=== PATIENT | male | born 1960 | race Caucasian/White ===

== ENCOUNTER 2018-03-11 09:37 | Emergency (ER) | payer SELFPAY | END 2018-03-11 10:40 | disposition home or self-care (01) | LOC: E/R 09:37 | DX: K42.9 Umbilical hernia without obstruction or gangrene (principal); R40.2142 Coma scale, eyes open, spontaneous, at arrival to emergency department; R40.2252 Coma scale, best verbal response, oriented, at arrival to emergency department; R40.2362 Coma scale, best motor response, obeys commands, at arrival to emergency department; F17.210 Nicotine dependence, cigarettes, uncomplicated | CPT/HCPCS: 99282 ==

== ENCOUNTER 2018-03-23 10:16 | Emergency (ER) | payer MEDICAID | END 2018-03-23 11:40 | disposition home or self-care (01) | LOC: E/R 10:16 | DX: K43.9 Ventral hernia without obstruction or gangrene (principal); Z87.891 Personal history of nicotine dependence | CPT/HCPCS: 99282; Z7502 ==

== ENCOUNTER 2018-03-29 14:32 | Inpatient (IN) | payer MEDICAID ==
[2018-03-29] MEDS: PIPER-TAZO 3.375 GM IV (PMX) 100 ML IVPB (00:01)
[2018-03-29 14:54] LABS: ADD MAN DIFF? NO
[2018-03-29 14:59] LABS: WHITE BLOOD COUNT 12.3 10^3/ul (4.8-10.8)
[2018-03-29 14:59] LABS: BASOPHILS % 0.3 % (0.0-2.0); EOSINOPHILS # 0.1 10^3/ul (0.0-0.5); HEMATOCRIT 48.8 % (42.0-52.0); HEMOGLOBIN 16.6 g/dl (14.0-18.0); LYMPHOCYTES # 0.9 10^3/ul (0.8-2.9); LYMPHOCYTES % 7.3 % (15.0-51.0); MEAN CORPUSCULAR HEMOGLOBIN 29.6 pg (29.0-33.0); MEAN CORPUSCULAR VOLUME 87.1 fl (82.0-101.0); MEAN PLATELET VOLUME 10.4 fl (7.4-10.4); MONOCYTE # 0.9 10^3/ul (0.3-0.9); MONOCYTES % 7.2 % (0.0-11.0); NEUTROPHIL # 10.3 10^3/ul (1.6-7.5); NEUTROPHILS % 83.7 % (39.0-77.0); PLATELET COUNT 311 10^3/UL (140-415); RED CELL DISTRIBUTION WIDTH 13.2 % (11.5-14.5)
[2018-03-29] MEDS: ONDANSETRON 4 MG INJ IV ×2 (15:02→20:09)
[2018-03-29] MEDS: morphine 2 MG INJ IV ×2 (15:04→20:09)
[2018-03-29 15:11] LABS: PROTIME 12.2 Sec (11.9-14.9)
[2018-03-29 15:13] LABS: PARTIAL THROMBOPLASTIN TIME 28.1 Sec (23.0-35.0)
[2018-03-29 15:14] LABS: ALANINE AMINOTRANSFERASE 14 IU/L (13-69); ALKALINE PHOSPHATASE 65 IU/L (42-121); ANION GAP 18 (8-16); ASPARTATE AMINO TRANSFERASE 23 IU/L (15-46); BILIRUBIN,INDIRECT 1.9 mg/dl (0-1.1); BILIRUBIN,TOTAL 1.9 mg/dl (0.2-1.3); BLOOD UREA NITROGEN 18 mg/dl (7-20); CALCIUM 10.1 mg/dl (8.4-10.2); CARBON DIOXIDE 29 mmol/L (21-31); CHLORIDE 99 mmol/L (97-110); CREATININE 1.22 mg/dl (0.61-1.24); GLUCOSE 145 mg/dl (70-220); LIPASE 46 U/L (23-300); POTASSIUM 4.3 mmol/L (3.5-5.1); SODIUM 142 mmol/L (135-144); TOTAL PROTEIN 8.4 g/dl (6.1-8.1)
[2018-03-29] MEDS ORDERED: NACL 0.9% 3 ML SYG IV (19:00)
[2018-03-29] MEDS: D5W-0.45 NACL + KCL 20 MEQ 1,000 ML IV (21:44)
[2018-03-29] MEDS: PANTOPRAZOLE IV 80 MG in SOD CHLORIDE 0.9% 100 ML IVPB (22:38)
[2018-03-29] MEDS: PANTOPRAZOLE IV 80 MG in SOD CHLORIDE 0.9% 100 ML IV (22:58)
[2018-03-30] MEDS: PIPER-TAZO 3.375 GM IV (PMX) 100 ML IVPB ×5 (00:01→23:52)
[2018-03-30] MEDS: D5W-0.45 NACL + KCL 20 MEQ 1,000 ML IV ×4 (05:23→21:30)
[2018-03-30] MEDS: PANTOPRAZOLE IV 80 MG in SOD CHLORIDE 0.9% 100 ML IV ×2 (06:55→15:44)
[2018-03-30 08:29] LABS: ADD MAN DIFF? NO
[2018-03-30 08:31] LABS: BASOPHILS % 0.2 % (0.0-2.0); EOSINOPHILS # 0.2 10^3/ul (0.0-0.5); EOSINOPHILS % 1.4 % (0.0-7.0); HEMATOCRIT 42.8 % (42.0-52.0); HEMOGLOBIN 14.5 g/dl (14.0-18.0); LYMPHOCYTES # 0.8 10^3/ul (0.8-2.9); LYMPHOCYTES % 6.5 % (15.0-51.0); MEAN CORPUSCULAR HEMOGLOBIN 29.8 pg (29.0-33.0); MEAN CORPUSCULAR HGB CONC 33.9 g/dl (32.0-37.0); MEAN CORPUSCULAR VOLUME 88.1 fl (82.0-101.0); MEAN PLATELET VOLUME 10.6 fl (7.4-10.4); MONOCYTE # 1.1 10^3/ul (0.3-0.9); MONOCYTES % 9.2 % (0.0-11.0); NEUTROPHIL # 9.7 10^3/ul (1.6-7.5); NEUTROPHILS % 82.1 % (39.0-77.0); PLATELET COUNT 239 10^3/UL (140-415); RED BLOOD COUNT 4.86 10^6/ul (4.70-6.10); RED CELL DISTRIBUTION WIDTH 13.2 % (11.5-14.5)
[2018-03-30 08:31] LABS: WHITE BLOOD COUNT 11.8 10^3/ul (4.8-10.8)
[2018-03-30 08:56] LABS: ALANINE AMINOTRANSFERASE 17 IU/L (13-69); ALBUMIN 3.3 g/dl (3.3-4.9); ALKALINE PHOSPHATASE 42 IU/L (42-121); ANION GAP 14 (8-16); ASPARTATE AMINO TRANSFERASE 19 IU/L (15-46); BILIRUBIN,INDIRECT 2.3 mg/dl (0-1.1); BILIRUBIN,TOTAL 2.3 mg/dl (0.2-1.3); BLOOD UREA NITROGEN 23 mg/dl (7-20); CALCIUM 8.8 mg/dl (8.4-10.2); CARBON DIOXIDE 29 mmol/L (21-31); CHLORIDE 100 mmol/L (97-110); CREATININE 1.49 mg/dl (0.61-1.24); GLUCOSE 147 mg/dl (70-220); POTASSIUM 4.2 mmol/L (3.5-5.1); SODIUM 139 mmol/L (135-144); TOTAL PROTEIN 6.3 g/dl (6.1-8.1)
[2018-03-30] MEDS: morphine 2 MG INJ IV ×2 (10:37→21:35)
[2018-03-30] MEDS ORDERED: PIPER-TAZO 3.375 GM IV (PMX) 100 ML IVPB (12:00)
[2018-03-30] MEDS ORDERED: CHLORPROMAZINE 25 MG INJ IV (13:00)
[2018-03-30] MEDS: CHLORPROMAZINE 25 MG INJ IM (13:48)
[2018-03-30] MEDS: CHLORPROMAZINE 25 MG INJ IV (16:30)
[2018-03-30 18:38] LABS: HEMATOCRIT 36.9 % (42.0-52.0); HEMOGLOBIN 12.5 g/dl (14.0-18.0)
[2018-03-31] MEDS: PANTOPRAZOLE IV 80 MG in SOD CHLORIDE 0.9% 100 ML IV ×3 (01:01→20:05)
[2018-03-31] MEDS: PIPER-TAZO 3.375 GM IV (PMX) 100 ML IVPB ×4 (05:23→23:58)
[2018-03-31 06:10] LABS: ADD MAN DIFF? NO
[2018-03-31] MEDS: D5W-0.45 NACL + KCL 20 MEQ 1,000 ML IV ×2 (06:13→19:44)
[2018-03-31 06:21] LABS: BASOPHILS % 0.3 % (0.0-2.0); EOSINOPHILS # 0.1 10^3/ul (0.0-0.5); EOSINOPHILS % 0.9 % (0.0-7.0); HEMATOCRIT 33.5 % (42.0-52.0); HEMOGLOBIN 11.3 g/dl (14.0-18.0); LYMPHOCYTES # 0.7 10^3/ul (0.8-2.9); LYMPHOCYTES % 8.7 % (15.0-51.0); MEAN CORPUSCULAR HGB CONC 33.7 g/dl (32.0-37.0); MEAN CORPUSCULAR VOLUME 88.9 fl (82.0-101.0); MEAN PLATELET VOLUME 10.7 fl (7.4-10.4); MONOCYTE # 0.9 10^3/ul (0.3-0.9); MONOCYTES % 11.4 % (0.0-11.0); NEUTROPHIL # 5.8 10^3/ul (1.6-7.5); NEUTROPHILS % 78.2 % (39.0-77.0); PLATELET COUNT 170 10^3/UL (140-415); RED BLOOD COUNT 3.77 10^6/ul (4.70-6.10)
[2018-03-31 06:21] LABS: WHITE BLOOD COUNT 7.4 10^3/ul (4.8-10.8)
[2018-03-31 06:48] LABS: ANION GAP 11 (8-16); BLOOD UREA NITROGEN 16 mg/dl (7-20); CALCIUM 7.8 mg/dl (8.4-10.2); CARBON DIOXIDE 27 mmol/L (21-31); CHLORIDE 102 mmol/L (97-110); CREATININE 1.55 mg/dl (0.61-1.24); GLUCOSE 132 mg/dl (70-220); MAGNESIUM 1.9 mg/dl (1.7-2.5); SODIUM 136 mmol/L (135-144)
[2018-03-31] MEDS: morphine 2 MG INJ IV ×4 (07:29→23:57)
[2018-03-31] MEDS ORDERED: BUPIVACAINE 0.25% (MPF) 30 ML INJ (15:39)
[2018-03-31] MEDS ORDERED: MIDAZOLAM 1 MG/ML 2 ML INJ ×2 (15:44→17:37)
[2018-03-31] MEDS ORDERED: PROPOFOL 20 ML (15:48)
[2018-03-31] MEDS: BUPIVACAINE 0.25%/EPI (SDV) 30 ML INJ (16:21)
[2018-03-31] MEDS: LIDOCAINE 1% (MDV) 20 ML INJ (16:22)
[2018-03-31] MEDS ORDERED: hydrALAzine 20 MG INJ (16:39)
[2018-03-31] MEDS ORDERED: VANCOMYCIN 1 GM INJ (16:58)
[2018-03-31] MEDS ORDERED: ONDANSETRON 4 MG INJ (17:04)
[2018-03-31] MEDS ORDERED: ROCURONIUM 50 MG INJ ×2 (17:05→17:16)
[2018-03-31] MEDS ORDERED: LIDOCAINE 2% (SDV) 5 ML INJ (17:05)
[2018-03-31] MEDS ORDERED: NEOSTIGMINE 3 MG/3 ML SYRINGE (17:05)
[2018-03-31] MEDS ORDERED: GLYCOPYRROLATE 0.4 MG INJ (17:05)
[2018-03-31] MEDS ORDERED: FENTAnyl 50 MCG/ML VIAL (17:20)
[2018-03-31] MEDS ORDERED: PROVENTIL HFA 6.7GM INHALER (17:28)
[2018-03-31 18:29] LABS: ADD UMIC NO; UR ASCORBIC ACID NEGATIVE (NEGATIVE); UR BILIRUBIN (Dip) NEGATIVE (NEGATIVE); UR BLOOD (Dip) NEGATIVE (NEGATIVE); UR CLARITY CLEAR (CLEAR); UR COLOR YELLOW (YELLOW); UR GLUCOSE (Dip) 1+ mg/dL (NEGATIVE); UR KETONES (Dip) NEGATIVE (NEGATIVE); UR LEUKOCYTE ESTERASE (Dip) NEGATIVE Leu/ul (NEGATIVE); UR NITRITE (Dip) NEGATIVE (NEGATIVE); UR SPECIFIC GRAVITY (Dip) 1.012 (1.003-1.030); UR TOTAL PROTEIN (Dip) NEGATIVE (NEGATIVE); UR UROBILINOGEN (Dip) NEGATIVE (NEGATIVE)
[2018-03-31] MEDS ORDERED: ALBUTEROL 0.083% (NEB) 2.5 MG/3 ML AMP HHN (18:30)
[2018-03-31] MEDS ORDERED: DIPHENHYDRAMINE 50 MG INJ IV (18:30)
[2018-03-31] MEDS ORDERED: FENTAnyl 50 MCG/ML VIAL IV (18:30)
[2018-03-31] MEDS ORDERED: LABETALOL HCL 20MG INJ IV (18:30)
[2018-03-31] MEDS ORDERED: MEPERIDINE 25 MG INJ IV (18:30)
[2018-03-31] MEDS ORDERED: ONDANSETRON 4 MG INJ IV (18:30)
[2018-03-31] MEDS ORDERED: hydrALAzine 20 MG INJ IV (18:30)
[2018-03-31] MEDS ORDERED: HYDROmorphONE 1 MG/5 ML IV SYRINGE IV (18:30)
[2018-03-31] MEDS: HYDROmorphONE 1 MG/5 ML IV SYRINGE IV (18:58)
[2018-03-31] MEDS: FAMOTIDINE 20 MG INJ IV (20:05)
[2018-03-31] MEDS: HYDROmorphONE 0.5 MG/0.5 ML SYG IV (22:03)
[2018-04-01] MEDS: HYDROmorphONE 2 MG/ML SYG IV (01:30)
[2018-04-01] MEDS: D5W-0.45 NACL + KCL 20 MEQ 1,000 ML IV ×3 (03:20→22:28)
[2018-04-01] MEDS: PANTOPRAZOLE IV 80 MG in SOD CHLORIDE 0.9% 100 ML IV ×2 (04:07→18:50)
[2018-04-01] MEDS: PIPER-TAZO 3.375 GM IV (PMX) 100 ML IVPB ×4 (05:49→22:39)
[2018-04-01 06:12] LABS: ADD MAN DIFF? NO
[2018-04-01 06:21] LABS: WHITE BLOOD COUNT 6.5 10^3/ul (4.8-10.8)
[2018-04-01 06:21] LABS: BASOPHILS % 0.3 % (0.0-2.0); EOSINOPHILS # 0.1 10^3/ul (0.0-0.5); EOSINOPHILS % 1.1 % (0.0-7.0); HEMATOCRIT 29.4 % (42.0-52.0); HEMOGLOBIN 9.8 g/dl (14.0-18.0); LYMPHOCYTES # 0.8 10^3/ul (0.8-2.9); LYMPHOCYTES % 12.9 % (15.0-51.0); MEAN CORPUSCULAR HEMOGLOBIN 30.2 pg (29.0-33.0); MEAN CORPUSCULAR HGB CONC 33.3 g/dl (32.0-37.0); MEAN CORPUSCULAR VOLUME 90.5 fl (82.0-101.0); MEAN PLATELET VOLUME 10.6 fl (7.4-10.4); NEUTROPHIL # 4.5 10^3/ul (1.6-7.5); NEUTROPHILS % 69.2 % (39.0-77.0); PLATELET COUNT 159 10^3/UL (140-415); RED BLOOD COUNT 3.25 10^6/ul (4.70-6.10); RED CELL DISTRIBUTION WIDTH 13.1 % (11.5-14.5)
[2018-04-01] MEDS: HYDROmorphONE 1 MG/ML SYG IV ×5 (06:21→22:27)
[2018-04-01 06:50] LABS: ANION GAP 7 (8-16); BLOOD UREA NITROGEN 10 mg/dl (7-20); CALCIUM 7.1 mg/dl (8.4-10.2); CARBON DIOXIDE 28 mmol/L (21-31); CHLORIDE 107 mmol/L (97-110); CREATININE 1.31 mg/dl (0.61-1.24); GLUCOSE 104 mg/dl (70-220); POTASSIUM 3.8 mmol/L (3.5-5.1); SODIUM 138 mmol/L (135-144)
[2018-04-01] MEDS: FAMOTIDINE 20 MG INJ IV ×2 (09:56→20:32)
[2018-04-02] MEDS: HYDROmorphONE 1 MG/ML SYG IV ×6 (01:48→21:07)
[2018-04-02] MEDS: PANTOPRAZOLE IV 80 MG in SOD CHLORIDE 0.9% 100 ML IV ×2 (03:04→13:52)
[2018-04-02] MEDS: PIPER-TAZO 3.375 GM IV (PMX) 100 ML IVPB ×4 (05:28→23:54)
[2018-04-02 07:34] LABS: ADD MAN DIFF? NO
[2018-04-02 07:44] LABS: WHITE BLOOD COUNT 6.9 10^3/ul (4.8-10.8)
[2018-04-02 07:44] LABS: BASOPHILS % 0.3 % (0.0-2.0); EOSINOPHILS # 0.2 10^3/ul (0.0-0.5); EOSINOPHILS % 3.1 % (0.0-7.0); HEMATOCRIT 29.3 % (42.0-52.0); HEMOGLOBIN 9.8 g/dl (14.0-18.0); LYMPHOCYTES # 0.8 10^3/ul (0.8-2.9); LYMPHOCYTES % 11.5 % (15.0-51.0); MEAN CORPUSCULAR HEMOGLOBIN 30.2 pg (29.0-33.0); MEAN CORPUSCULAR HGB CONC 33.4 g/dl (32.0-37.0); MEAN CORPUSCULAR VOLUME 90.2 fl (82.0-101.0); MEAN PLATELET VOLUME 10.2 fl (7.4-10.4); MONOCYTE # 0.8 10^3/ul (0.3-0.9); MONOCYTES % 11.8 % (0.0-11.0); NEUTROPHILS % 72.6 % (39.0-77.0); PLATELET COUNT 180 10^3/UL (140-415); RED BLOOD COUNT 3.25 10^6/ul (4.70-6.10); RED CELL DISTRIBUTION WIDTH 12.9 % (11.5-14.5)
[2018-04-02 08:20] LABS: ANION GAP 9 (8-16); BLOOD UREA NITROGEN 8 mg/dl (7-20); CALCIUM 7.7 mg/dl (8.4-10.2); CARBON DIOXIDE 28 mmol/L (21-31); CHLORIDE 103 mmol/L (97-110); CREATININE 1.18 mg/dl (0.61-1.24); GLUCOSE 106 mg/dl (70-220); PHOSPHORUS 2.6 mg/dl (2.5-4.9); POTASSIUM 3.6 mmol/L (3.5-5.1); SODIUM 136 mmol/L (135-144)
[2018-04-02] MEDS: FAMOTIDINE 20 MG INJ IV (08:40)
[2018-04-02] MEDS: D5W-0.45 NACL + KCL 20 MEQ 1,000 ML IV ×2 (08:50→19:43)
[2018-04-02] MEDS: morphine 4 MG/ML VIAL IV ×2 (13:17→18:20)
[2018-04-02] MEDS: PANTOPRAZOLE 40 MG INJ IV (18:17)
[2018-04-03] MEDS: morphine 4 MG/ML VIAL IV ×3 (00:01→18:06)
[2018-04-03] MEDS: HYDROmorphONE 1 MG/ML SYG IV ×6 (04:00→23:48)
[2018-04-03] MEDS: D5W-0.45 NACL + KCL 20 MEQ 1,000 ML IV ×3 (05:20→20:26)
[2018-04-03] MEDS: PIPER-TAZO 3.375 GM IV (PMX) 100 ML IVPB (05:36)
[2018-04-03] MEDS: PANTOPRAZOLE 40 MG INJ IV ×2 (05:37→18:05)
[2018-04-03 07:05] LABS: ADD MAN DIFF? NO
[2018-04-03 07:13] LABS: BASOPHILS % 0.6 % (0.0-2.0); EOSINOPHILS # 0.3 10^3/ul (0.0-0.5); EOSINOPHILS % 5.5 % (0.0-7.0); HEMATOCRIT 30.7 % (42.0-52.0); HEMOGLOBIN 10.4 g/dl (14.0-18.0); LYMPHOCYTES # 0.9 10^3/ul (0.8-2.9); LYMPHOCYTES % 17.9 % (15.0-51.0); MEAN CORPUSCULAR HGB CONC 33.9 g/dl (32.0-37.0); MEAN CORPUSCULAR VOLUME 88.5 fl (82.0-101.0); MEAN PLATELET VOLUME 10.2 fl (7.4-10.4); MONOCYTE # 0.6 10^3/ul (0.3-0.9); MONOCYTES % 11.2 % (0.0-11.0); NEUTROPHIL # 3.4 10^3/ul (1.6-7.5); NEUTROPHILS % 64.4 % (39.0-77.0); PLATELET COUNT 230 10^3/UL (140-415); RED BLOOD COUNT 3.47 10^6/ul (4.70-6.10); RED CELL DISTRIBUTION WIDTH 12.8 % (11.5-14.5)
[2018-04-03 07:13] LABS: WHITE BLOOD COUNT 5.3 10^3/ul (4.8-10.8)
[2018-04-03 07:43] LABS: ANION GAP 9 (8-16); BLOOD UREA NITROGEN 6 mg/dl (7-20); CALCIUM 8.5 mg/dl (8.4-10.2); CARBON DIOXIDE 28 mmol/L (21-31); CHLORIDE 106 mmol/L (97-110); CREATININE 1.16 mg/dl (0.61-1.24); GLUCOSE 95 mg/dl (70-220); POTASSIUM 3.8 mmol/L (3.5-5.1); SODIUM 139 mmol/L (135-144)
[2018-04-04] MEDS: D5W-0.45 NACL + KCL 20 MEQ 1,000 ML IV ×4 (01:09→21:20)
[2018-04-04] MEDS: HYDROmorphONE 1 MG/ML SYG IV ×5 (04:39→21:17)
[2018-04-04] MEDS: PANTOPRAZOLE 40 MG INJ IV ×2 (05:39→18:44)
[2018-04-04 05:59] LABS: ADD MAN DIFF? NO
[2018-04-04 06:09] LABS: WHITE BLOOD COUNT 5.9 10^3/ul (4.8-10.8)
[2018-04-04 06:09] LABS: BASOPHILS % 0.3 % (0.0-2.0); EOSINOPHILS # 0.4 10^3/ul (0.0-0.5); EOSINOPHILS % 6.2 % (0.0-7.0); HEMATOCRIT 33.3 % (42.0-52.0); HEMOGLOBIN 11.4 g/dl (14.0-18.0); LYMPHOCYTES # 0.9 10^3/ul (0.8-2.9); LYMPHOCYTES % 15.7 % (15.0-51.0); MEAN CORPUSCULAR HEMOGLOBIN 29.8 pg (29.0-33.0); MEAN CORPUSCULAR HGB CONC 34.2 g/dl (32.0-37.0); MEAN CORPUSCULAR VOLUME 86.9 fl (82.0-101.0); MEAN PLATELET VOLUME 9.9 fl (7.4-10.4); MONOCYTE # 0.7 10^3/ul (0.3-0.9); MONOCYTES % 11.6 % (0.0-11.0); NEUTROPHIL # 3.9 10^3/ul (1.6-7.5); NEUTROPHILS % 65.5 % (39.0-77.0); PLATELET COUNT 307 10^3/UL (140-415); RED BLOOD COUNT 3.83 10^6/ul (4.70-6.10); RED CELL DISTRIBUTION WIDTH 12.4 % (11.5-14.5)
[2018-04-04 06:39] LABS: ANION GAP 9 (8-16); BLOOD UREA NITROGEN 5 mg/dl (7-20); CALCIUM 8.9 mg/dl (8.4-10.2); CARBON DIOXIDE 28 mmol/L (21-31); CHLORIDE 106 mmol/L (97-110); CREATININE 1.02 mg/dl (0.61-1.24); GLUCOSE 109 mg/dl (70-220); POTASSIUM 4.2 mmol/L (3.5-5.1); SODIUM 139 mmol/L (135-144)
[2018-04-04] MEDS: MAGNESIUM HYDROXIDE 30ML CUP PO (21:17)
[2018-04-04] MEDS: DOCUSATE SODIUM 100 MG CAP PO (21:17)
[2018-04-05] MEDS: HYDROmorphONE 1 MG/ML SYG IV ×6 (01:15→23:28)
[2018-04-05] MEDS: D5W-0.45 NACL + KCL 20 MEQ 1,000 ML IV ×2 (03:22→07:20)
[2018-04-05] MEDS: PANTOPRAZOLE 40 MG INJ IV ×2 (05:31→18:27)
[2018-04-05 05:50] LABS: ADD MAN DIFF? NO
[2018-04-05 06:00] LABS: WHITE BLOOD COUNT 8.3 10^3/ul (4.8-10.8)
[2018-04-05 06:00] LABS: BASOPHILS % 0.4 % (0.0-2.0); EOSINOPHILS # 0.3 10^3/ul (0.0-0.5); EOSINOPHILS % 3.7 % (0.0-7.0); HEMATOCRIT 35.3 % (42.0-52.0); HEMOGLOBIN 12.3 g/dl (14.0-18.0); LYMPHOCYTES # 1.4 10^3/ul (0.8-2.9); LYMPHOCYTES % 16.7 % (15.0-51.0); MEAN CORPUSCULAR HGB CONC 34.8 g/dl (32.0-37.0); MEAN CORPUSCULAR VOLUME 86.1 fl (82.0-101.0); MEAN PLATELET VOLUME 9.6 fl (7.4-10.4); MONOCYTE # 0.8 10^3/ul (0.3-0.9); MONOCYTES % 10.1 % (0.0-11.0); NEUTROPHIL # 5.7 10^3/ul (1.6-7.5); NEUTROPHILS % 68.3 % (39.0-77.0); PLATELET COUNT 358 10^3/UL (140-415); RED CELL DISTRIBUTION WIDTH 12.6 % (11.5-14.5)
[2018-04-05 06:35] LABS: ANION GAP 10 (8-16); BLOOD UREA NITROGEN 7 mg/dl (7-20); CALCIUM 9.2 mg/dl (8.4-10.2); CARBON DIOXIDE 30 mmol/L (21-31); CHLORIDE 104 mmol/L (97-110); CREATININE 1.03 mg/dl (0.61-1.24); GLUCOSE 108 mg/dl (70-220); POTASSIUM 4.3 mmol/L (3.5-5.1); SODIUM 140 mmol/L (135-144)
[2018-04-05] MEDS: DOCUSATE SODIUM 100 MG CAP PO ×2 (08:24→20:21)
[2018-04-05] MEDS: MAGNESIUM HYDROXIDE 30ML CUP PO (18:50)
[2018-04-06] MEDS: HYDROmorphONE 1 MG/ML SYG IV ×2 (03:03→12:16)
[2018-04-06] MEDS: PANTOPRAZOLE 40 MG INJ IV ×2 (05:47→17:46)
[2018-04-06] MEDS: DOCUSATE SODIUM 100 MG CAP PO ×2 (12:16→20:06)
[2018-04-06] MEDS ORDERED: IBUPROFEN 400 MG TAB PO (15:30)
[2018-04-06] MEDS: HYDROCODONE/APAP (10/325) TAB PO ×2 (15:54→20:07)
[2018-04-07] MEDS: PANTOPRAZOLE 40 MG INJ IV (06:19)
[2018-04-07] MEDS: DOCUSATE SODIUM 100 MG CAP PO (08:33)
== END 2018-04-07 13:50 | disposition home or self-care (01) | DRG 354 ==
LOC: 2NE 04-03 15:30 → E/R 14:32 → TEL 16:36
PROC: 0WQF0ZZ Repair Abdominal Wall, Open Approach (ICD-10-PCS; principal; 2018-03-31 12:00)
DX: K92.1 Melena (principal); T81.31XA Disruption of external operation (surgical) wound, not elsewhere classified, initial encounter; K91.30 Postprocedural intestinal obstruction, unspecified as to partial versus complete; N17.9 Acute kidney failure, unspecified; D62 Acute posthemorrhagic anemia; F17.200 Nicotine dependence, unspecified, uncomplicated; R06.6 Hiccough; E86.0 Dehydration
CPT/HCPCS: 36415; 71045; 74019; 74176; 80048; 80053; 81003; 83690; 83735; 84100; 85014; 85018; 85025; 85610; 85730; 86850; 86900; 86901; 86920; 87070; 87075; 87086; 93005; 96374; 96375; 99285-25